=== PATIENT | female | born 1955 | race Caucasian/White ===

== ENCOUNTER → 2016-05-01 | Outpatient (REF) ==
[~2016-05-01] MED LIST: VIVLODEX5 MG PO; ZESTRIL2.5 MG PO
[2016-05-01 16:49] LABS: THYROID STIMULATING HORMONE 2.92 uIU/mL (0.465-4.680)
== END ==
LOC: ZLAB.WCH 15:09
PROVIDERS: Family Medicine
DX: Z01.89 Encounter for other specified special examinations (principal)

== ENCOUNTER → 2016-11-04 | Outpatient (CLI) | payer BC ==
[~2016-11-04] VITALS: Ht 154.9 cm; Wt 91.1 kg
[2016-11-04 11:37] VITALS: BP 152/93; PULSE 59
[2016-11-04 12:31] VITALS: BP 160/84; PULSE 89
[2016-11-04 12:32] VITALS: BP 159/81; PULSE 88
[2016-11-04 12:33] VITALS: BP 147/87; PULSE 86
== END ==
LOC: COL.CARD 10:34
DX: R20.0 Anesthesia of skin (principal); I10 Essential (primary) hypertension; E03.9 Hypothyroidism, unspecified; J45.909 Unspecified asthma, uncomplicated; F32.9 Major depressive disorder, single episode, unspecified; E78.00 Pure hypercholesterolemia, unspecified; E11.01 Type 2 diabetes mellitus with hyperosmolarity with coma; M25.559 Pain in unspecified hip; M25.569 Pain in unspecified knee; J30.9 Allergic rhinitis, unspecified; R94.31 Abnormal electrocardiogram [ECG] [EKG]; R20.2 Paresthesia of skin; R22.2 Localized swelling, mass and lump, trunk; R60.9 Edema, unspecified; Z98.51 Tubal ligation status; Z87.891 Personal history of nicotine dependence; Z68.36 Body mass index [BMI] 36.0-36.9, adult
CPT/HCPCS: A9502; J2785

== ENCOUNTER → 2018-07-11 | Outpatient (REF) ==
[2018-07-11 17:17] LABS: THYROID STIMULATING HORMONE 2.25 uIU/mL (0.465-4.680)
== END ==
LOC: ZLAB.WCH 16:14
PROVIDERS: Family Medicine
DX: Z01.89 Encounter for other specified special examinations (principal)